=== PATIENT | male | born 1955 | race Caucasian/White ===

== ENCOUNTER 2016-10-28 12:47 | Inpatient (IN) | payer OTHER ==
[~2016-10-28] VITALS: Ht 182.9 cm; Wt 114.2 kg
[~2016-10-28 12:47] MED LIST: ATOR40TA PO; Aspirin PO; CYCL-259 PO; DULO20CA45 PO; FEXO1TAB29 PO; FLUO40CA9 PO; LEVO137T3 PO; LISI-167 PO; METO25TA35 PO; MORP15TA3 PO; NICO1PAT5 TD; OMEP-110 PO; POLY17PO5 PO; STATIN
[2016-10-28] MEDS ORDERED: ASPIRIN 81 MG TABLET CHEW ONE (13:27)
[2016-10-28] MEDS ORDERED: SODIUM CHLORIDE FLUSH 10ML SYR IVF ONE (13:30)
[2016-10-28] MEDS ORDERED: ASPIRIN 81 MG TABLET CHEW PO ONE (13:30)
[2016-10-28 13:54] LABS: ASPARTATE AMINO TRANSFERASE 23 U/L (15-37); BLOOD UREA NITROGEN 13 mg/dL (7-18)
[2016-10-28 14:00] LABS: IS PT STATUS REG ER OR PRE ER? YES
[2016-10-28] MEDS ORDERED: DIPHENHYDRAMINE 50 MG/ML, 1ML ONE (14:19)
[2016-10-28] MEDS ORDERED: METOCLOPRAMIDE 5 MG/ML, 2ML ONE (14:19)
[2016-10-28] MEDS ORDERED: DIPHENHYDRAMINE 50 MG/ML, 1ML IVPush ONE (14:30)
[2016-10-28] MEDS ORDERED: SODIUM CHLORIDE 0.9%, 500ML IVBOLUS ONE (14:30)
[2016-10-28] MEDS ORDERED: METOCLOPRAMIDE 5 MG/ML, 2ML IVPush ONE (14:30)
[2016-10-28] MEDS ORDERED: ONDANSETRON ODT 4 MG PO PRN (16:30)
[2016-10-28] MEDS ORDERED: ONDANSETRON 2MG/ML, 2ML IVPush PRN (16:30)
[2016-10-28] MEDS ORDERED: LABETALOL 5MG/ML, 20ML IVPush PRN (16:30)
[2016-10-28] MEDS ORDERED: CYCLOBENZAPRINE 10 MG TABLET PO PRN (16:30)
[2016-10-28] MEDS ORDERED: HYDROcodone/APAP 5/325 TABLET PO PRN (16:30)
[2016-10-28] MEDS ORDERED: POLYETHYLENE GLYCOL 17 GM PACKET PO PRN (16:30)
[2016-10-28] MEDS ORDERED: GUAIFENESIN/DM 200-20MG, 10ML UDC PO PRN (16:30)
[2016-10-28 16:42] LABS: IS PT STATUS REG ER OR PRE ER? YES
[2016-10-28 17:46] VITALS: BP 144/93
[2016-10-28] MEDS: morphine SULFATE 10 MG/ML, 1ML IVPush PRN (18:13)
[2016-10-28 18:29] VITALS: BP 132/86
[2016-10-28] MEDS ORDERED: ATORVASTATIN 40 MG TABLET PO SCH (21:00)
[2016-10-28] MEDS: METOPROLOL TARTRATE 25 MG TABLET PO SCH (21:49)
[2016-10-28 22:51] LABS: IS PT STATUS REG ER OR PRE ER? NO
[2016-10-29 01:01] VITALS: BP 120/82
[2016-10-29] MEDS ORDERED: ASPIRIN 81 MG TABLET EC PO SCH (06:00)
[2016-10-29] MEDS ORDERED: LEVOTHYROXINE 137 MCG TABLET PO SCH (06:00)
[2016-10-29 06:29] LABS: ASPARTATE AMINO TRANSFERASE 23 U/L (15-37); BLOOD UREA NITROGEN 16 mg/dL (7-18)
[2016-10-29] MEDS ORDERED: OMEPRAZOLE 20 MG CAPSULE.DR PO SCH (07:30)
[2016-10-29 08:50] VITALS: BP 133/90
[2016-10-29] MEDS ORDERED: DULOXETINE 20 MG CAPSULE.DR PO SCH (09:00)
[2016-10-29] MEDS ORDERED: SENNA/DOCUSATE TABLET PO SCH (09:00)
[2016-10-29] MEDS ORDERED: FLUOXETINE 20 MG CAPSULE PO SCH (09:00)
[2016-10-29] MEDS ORDERED: LISINOPRIL 10 MG TABLET PO SCH (09:00)
[2016-10-29] MEDS ORDERED: REGADENOSON 0.4 MG/5 ML SYRINGE ONE (10:26)
[2016-10-29 13:09] VITALS: BP 154/100
[2016-10-29] MEDS ORDERED: MORPHINE SULFATE 4 MG/ML, 1ML ONE (13:12)
[2016-10-29] MEDS: morphine SULFATE 10 MG/ML, 1ML IVPush PRN (13:15)
[2016-10-29] MEDS: METOPROLOL TARTRATE 25 MG TABLET PO SCH (13:15)
[2016-10-29] MEDS ORDERED: ASPI-621 PO (13:30)
== END 2016-10-29 15:16 | disposition home or self-care (01) | DRG 292 ==
LOC: ED 14:37 → EDIP 15:42 → 5SO 17:16
PROVIDERS: ADMIT Hospitalist; ATTEND Hospitalist
DX: I11.0 Hypertensive heart disease with heart failure (principal); N17.9 Acute kidney failure, unspecified; F17.203 Nicotine dependence unspecified, with withdrawal; I50.32 Chronic diastolic (congestive) heart failure; K21.9 Gastro-esophageal reflux disease without esophagitis; E03.9 Hypothyroidism, unspecified; E78.00 Pure hypercholesterolemia, unspecified; E78.5 Hyperlipidemia, unspecified; F32.9 Major depressive disorder, single episode, unspecified; N20.9 Urinary calculus, unspecified; R04.0 Epistaxis; M54.30 Sciatica, unspecified side; M54.9 Dorsalgia, unspecified; M62.838 Other muscle spasm; G89.29 Other chronic pain; K59.00 Constipation, unspecified; Z66 Do not resuscitate; Z79.82 Long term (current) use of aspirin; Z79.899 Other long term (current) drug therapy; Z86.73 Personal history of transient ischemic attack (TIA), and cerebral infarction without residual deficits; Z88.0 Allergy status to penicillin; Z88.5 Allergy status to narcotic agent
CPT/HCPCS: 36415; 71010; 78452; 80053; 80061; 82570; 83690; 83735; 84300; 84439; 84484; 85025; 85610; 85730; 93005; 93017; 96361; 96374; 96375; J2785; A9502; C9898; J1200; J2270; J2765; J7040

== ENCOUNTER 2017-09-14 21:12 | Emergency (ER) | payer OTHER ==
[~2017-09-14] VITALS: Ht 182.9 cm; Wt 115.7 kg
[~2017-09-14 21:12] MED LIST changes: +ASPI-621 PO; +NICO-487 TD; -NICO1PAT5 TD
[2017-09-14] MEDS ORDERED: SODIUM CHLORIDE FLUSH 10ML SYR IVF ONE (22:00)
[2017-09-14] MEDS ORDERED: SODIUM CHLORIDE 0.9% 1,000ML IVBOLUS ONE (22:00)
[2017-09-14 22:08] LABS: BASOPHILS # (AUTO) 0.08 x10^3/uL (0-0.1); BASOPHILS % (AUTO) 1 % (0-1); EOSINOPHILS % (AUTO) 3 % (1-7); LYMPHOCYTES # (AUTO) 2.15 x10^3/uL (1-3.4); LYMPHOCYTES % (AUTO) 27 % (22-44); MD NO; MEAN CORPUSCULAR HGB CONC 33.8 g/dL (33.2-36.2); MEAN CORPUSCULAR VOLUME 97.6 fL (81-97); MEAN PLATELET VOLUME 7.8 fL (7.4-10.4); MONOCYTES # (AUTO) 0.96 x10^3/uL (0.2-0.8); MONOCYTES % (AUTO) 12 % (2-9); NEUTROPHILS # (AUTO) 4.66 x10^3/uL (1.8-6.8); NEUTROPHILS % (AUTO) 58 % (42-75); PLATELET COUNT 243 x10^3/uL (130-400); RED BLOOD COUNT 4.66 x10^6/uL (4.38-5.82); RED CELL DISTRIBUTION WIDTH 15.6 % (9.4-14.8)
[2017-09-14 22:17] LABS: ALANINE AMINOTRANSFERASE 35 U/L (12-78); ALBUMIN 3.5 g/dL (3.4-5.0); ANION GAP 9 mmol/L (5-15); CALCIUM 9.9 mg/dL (8.5-10.1); CHLORIDE 109 mmol/L (98-107); CREATININE 1.28 mg/dL (0.7-1.3)
[2017-09-14 22:21] LABS: ALKALINE PHOSPHATASE 90 U/L (45-117); BILIRUBIN,TOTAL 0.4 mg/dL (0.2-1.0); TROPONIN I < 0.015 ng/mL (0.000-0.045)
[2017-09-14 23:59] VITALS: BP 104/75
== END 2017-09-15 00:01 | disposition home or self-care (01) ==
LOC: ED 23:15
DX: R55 Syncope and collapse (principal); E86.0 Dehydration; I10 Essential (primary) hypertension; E78.00 Pure hypercholesterolemia, unspecified; Z86.73 Personal history of transient ischemic attack (TIA), and cerebral infarction without residual deficits; F17.200 Nicotine dependence, unspecified, uncomplicated
CPT/HCPCS: 36415; 71045; 80053; 84484; 85025; 93005; 99285

== ENCOUNTER → 2020-03-15 | Outpatient (CLI) | payer OTHER ==
[~2020-03-15] MED LIST changes: -ASPI-621 PO; +ASPI81TA45 PO; +MORP-29 PO; -MORP15TA3 PO
== END | disposition home or self-care (01) ==
LOC: RAD 10:40
PROVIDERS: ATTEND Physician Assistant
DX: M41.84 Other forms of scoliosis, thoracic region (principal); M48.07 Spinal stenosis, lumbosacral region
CPT/HCPCS: 72082